=== PATIENT | female | born 1955 | race Caucasian/White ===

== ENCOUNTER → 2017-09-15 | Outpatient (CLI) | payer OTHER | LOC: MC.RAD 14:00 | DX: Z12.31 Encounter for screening mammogram for malignant neoplasm of breast (principal); D24.2 Benign neoplasm of left breast; D24.1 Benign neoplasm of right breast; Z98.82 Breast implant status ==

== ENCOUNTER 2018-01-05 08:21 | Day surgery (SDC) | payer OTHER ==
[~2018-01-05] VITALS: Ht 160 cm; Wt 75.0 kg
[2018-01-05] MEDS ORDERED: SINGULAIR 110 MG/TAB PO (08:45)
[2018-01-05] MEDS ORDERED: LEXAPRO 10MG10 MG PO (08:46)
[2018-01-05] MEDS ORDERED: FLEXERIL5 MG PO (08:57)
[2018-01-05] MEDS ORDERED: NORVASC 5MG5 MG/TAB PO (08:58)
[2018-01-05] MEDS ORDERED: COZAAR 50MG50 MG/TAB PO (08:58)
[2018-01-05 08:59] VITALS: BP 123/79; PULSE 88; TEMP 98.6
[2018-01-05 11:00] VITALS: BP 117/52; PULSE 86
[2018-01-05 11:15] VITALS: BP 89/67; PULSE 85
[2018-01-05 11:30] VITALS: BP 119/83; PULSE 82
[2018-01-05 16:31] VITALS: BP 112/84; PULSE 74
== END 2018-01-05 12:02 | disposition home or self-care (01) ==
LOC: SDCO 08:21
DX: D12.0 Benign neoplasm of cecum (principal); D12.3 Benign neoplasm of transverse colon; D12.4 Benign neoplasm of descending colon; D12.5 Benign neoplasm of sigmoid colon; K64.0 First degree hemorrhoids; K63.89 Other specified diseases of intestine; K58.9 Irritable bowel syndrome, unspecified; E11.9 Type 2 diabetes mellitus without complications; I10 Essential (primary) hypertension; J45.909 Unspecified asthma, uncomplicated; M81.0 Age-related osteoporosis without current pathological fracture; Z88.1 Allergy status to other antibiotic agents; Z80.0 Family history of malignant neoplasm of digestive organs
CPT/HCPCS: OP; J2250; J3010; J7030

== ENCOUNTER → 2019-01-04 | Outpatient (CLI) | payer OTHER ==
[~2019-01-04] MED LIST: COZAAR 50MG50 MG/TAB PO; FLEXERIL5 MG PO; LEXAPRO 10MG10 MG PO; NORVASC 5MG5 MG/TAB PO; SINGULAIR 110 MG/TAB PO
== END ==
LOC: MC.RAD 11:15
DX: Z12.31 Encounter for screening mammogram for malignant neoplasm of breast (principal)

== ENCOUNTER → 2020-03-02 | Outpatient (CLI) | payer OTHER | LOC: MC.RAD 01-09 14:30 | DX: Z12.31 Encounter for screening mammogram for malignant neoplasm of breast (principal); Z98.82 Breast implant status ==